=== PATIENT | female | born 1985 | race Caucasian/White ===

== ENCOUNTER 2021-09-08 12:59 | Emergency (ER) | payer BC ==
[2021-09-08] MEDS ORDERED: Ondansetron ODT 4 MG TAB ONE (13:37)
[2021-09-08] MEDS ORDERED: Ibuprofen 800 MG TAB ONE (13:37)
[2021-09-09 22:15] LABS: SARS-CoV-2 PCR by NAA DETECTED (NotDetected)
== END 2021-09-08 14:58 | disposition home or self-care (01) ==
LOC: BURERS 12:59
DX: U07.1 COVID-19 (principal)
CPT/HCPCS: 71045; Q0162; U0003; U0005